=== PATIENT | female | born 1960 | race African-American/Black ===

== ENCOUNTER → 2016-08-12 | Outpatient (CLI) | payer BC ==
[~2016-08-12] MED LIST: ONDA4TAB7 SL
--- NOTE | 2016-08-13 15:29 | MAMMOGRAPHY REPORT ---
BILATERAL DIGITAL SCREENING MAMMOGRAM TOMOSYNTHESIS WITH CAD: 08/12/2016 CLINICAL HISTORY: Routine screening. Patient has no complaints. TECHNIQUE: Breast tomosynthesis in addition to standard 2D mammography was performed. Current study was also evaluated with a Computer Aided Detection (CAD) system. COMPARISON: No prior exams were available for comparison. BREAST COMPOSITION: The tissue of both breasts is heterogeneously dense, which may obscure small ma sses. FINDINGS: There are subcentimeter reniform circumscribed masses with central lucent notches and feed ing vessel in the upper outer quadrant of the left breast, most compatible with intramammary lymph n odes. No suspicious mass, architectural distortion or cluster of suspicious microcalcifications is seen. IMPRESSION: ACR BI-RADS CATEGORY 1: NEGATIVE There is no mammographic evidence of malignancy. A 1 year screening mammogram is recommended. The p atient will receive written notification of the results. Approximately 10% of breast cancers are not detected with mammography. A negative mammographic repor t should not delay biopsy if a clinically suggestive mass is present. Katharina Dobbs M.D. ay/:08/13/2016 13:28:41 Bill Of Lading Clerk: Catherine Trejo, [facility] letter sent: Normal 1/2 BI-RADS Code: ACR BI-RADS Category 1: Negative
== END | disposition home or self-care (01) ==
LOC: C.MAMM 14:21
PROVIDERS: ATTEND Family Medicine
DX: Z12.31 Encounter for screening mammogram for malignant neoplasm of breast (principal)

== ENCOUNTER 2017-06-12 17:09 | Emergency (ER) | payer BC, OTHER ==
[~2017-06-12] VITALS: Ht 167.6 cm; Wt 76.0 kg
[2017-06-12 17:17] VITALS: Ht 167.6 cm; Wt 76.0 kg
[2017-06-12] MEDS ORDERED: SODIUM CHLORIDE 0.9% 1000ML 1,000 ML IV STA (17:22)
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
[2017-06-12] MEDS ORDERED: AZEL0.1S2 NAE (17:43)
[2017-06-12] MEDS ORDERED: CYM60 PO (17:43)
[2017-06-12] MEDS ORDERED: QUET1TAB32 PO (17:43)
[2017-06-12] MEDS ORDERED: NALT50TA16 PO (17:43)
[2017-06-12] MEDS ORDERED: WLLXL300 PO (17:43)
[2017-06-12 17:44] VITALS: TEMP 36.8
[2017-06-12 17:49] LABS: BASO % 0.6 %; BASO ABS # 0.04 K/uL (0-0.2); EOS % 4.2 %; EOS ABS # 0.27 K/uL (0-0.5); HEMATOCRIT 37.4 % (37-47); HEMOGLOBIN 12.4 g/dL (12.0-16.0); IG# 0.01 K/uL (0.00-0.02); LYMPH % 48.8 %; LYMPH ABS # 3.16 K/uL (1.2-3.4); MEAN CELL VOLUME 90.3 fL (80-100); MEAN CORPUSCULAR HGB CONC 33.2 g/dl (32-36); MEAN PLATELET VOLUME 10.8 fL (7.4-10.4); MONO ABS # 0.39 K/uL (0.11-0.59); NEUT % 40.2 %; PLATELET COUNT 246 K/uL (130-400); RED CELL DISTRIBUTION WIDTH CV 14.1 % (11.5-14.5); RED CELL DISTRIBUTION WIDTH SD 46.6 fL (36.4-46.3); WHITE BLOOD COUNT 6.47 K/uL (4.8-10.8)
--- NOTE | 2017-06-12 17:53 | DIAGNOSTIC IMAGING REPORT ---
SINGLE VIEW CHEST CLINICAL HISTORY: Weakness. Change in mental status. FINDINGS: An AP, portable, upright chest radiograph is obtained. No prior studies are available for comparison at the time of dictation. The examination is degraded by portable technique and patient rotation. The cardiomediastinal silhouette is unremarkable. The lungs and pleural spaces are clear. No pneumothorax is seen. The skeletal structures appear osteopenic. The bony thorax is grossly intact. IMPRESSION: No acute cardiopulmonary abnormality. Electronically signed by: Memo Sow M.D. 06/12/2017 5:51 PM Dictated Date/Time: 06/12/2017 5:51 PM
[2017-06-12 18:00] LABS: PTT PATIENT 24.4 SECONDS (21.0-31.0)
--- NOTE | 2017-06-12 18:16 | DIAGNOSTIC IMAGING REPORT ---
HEAD CT NONCONTRAST CT DOSE: 537.48 mGy.cm HISTORY: EVALUATE ALTERED MENTAL STATUS/WEAKNESS TECHNIQUE: Multiaxial CT images of the head were performed without the use of intravenous contrast. Automated exposure control was utilized for this study. A dose lowering technique was utilized adhering to the principles of ALARA. Comparison: None. Findings: Fluid levels within the right opacification of the sphenoid sinuses, left maxillary sinus, and ethmoid air cells. The mastoid air cells are clear. The calvarium and skull base are intact. The ventricles and sulci are within normal limits. There is no mass, hematoma, midline shift, or acute infarct. Impression: No acute intracranial abnormality. Acute paranasal sinusitis. Electronically signed by: Shahab Forst M.D. 06/12/2017 6:15 PM Dictated Date/Time: 06/12/2017 6:11 PM
[2017-06-12 18:21] VITALS: BP 127/77; PULSE 76; O2SAT 100
[2017-06-12 18:23] LABS: ALBUMIN 4.2 gm/dl (3.4-5.0); ALKALINE PHOSPHATASE 82 U/L (45-117); ALT/SGPT 23 U/L (12-78); AST/SGOT 18 U/L (15-37); BLOOD UREA NITROGEN 14 mg/dl (7-18); CALCIUM 9.1 mg/dl (8.5-10.1); CARBON DIOXIDE 30 mmol/L (21-32); CREATININE 1.33 mg/dl (0.60-1.20); GLUCOSE 94 mg/dl (70-99); LIPASE 84 U/L (73-393); POTASSIUM 3.6 mmol/L (3.5-5.1); SODIUM 136 mmol/L (136-145); TOTAL PROTEIN 8.5 gm/dl (6.4-8.2)
[2017-06-12] MEDS ORDERED: AZITTAB PO (19:00)
[2017-06-12] MEDS ORDERED: AZITHROMYCIN 250 MG TAB PO STA (19:06)
== END 2017-06-12 20:41 | disposition home or self-care (01) ==
LOC: EDBD 17:09 → C.EDA 17:12
DX: R55 Syncope and collapse (principal); J32.9 Chronic sinusitis, unspecified; F32.9 Major depressive disorder, single episode, unspecified; Z79.899 Other long term (current) drug therapy; F17.210 Nicotine dependence, cigarettes, uncomplicated; V89.2XXA Person injured in unspecified motor-vehicle accident, traffic, initial encounter

== ENCOUNTER → 2017-06-25 | Outpatient (CLI) | payer OTHER ==
[~2017-06-25] MED LIST changes: +AZEL0.1S2 NAE; +CYM60 PO; +NALT50TA16 PO; -ONDA4TAB7 SL; +QUET1TAB32 PO; +WLLXL300 PO
--- NOTE | 2017-06-25 14:59 | DIAGNOSTIC IMAGING REPORT ---
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 IV contrast was not administered for this examination. A dose lowering technique was utilized adhering to the principles of ALARA. CT DOSE: k FINDINGS: No intra or extra-axial mass lesions are visualized. There is no CT evidence of acute cortical infarction. There is no evidence of midline shift. There is no acute hemorrhage. No calvarial fractures are visualized. There are patchy white matter hypodensities likely on a small vessel basis. There is no evidence of pathologic ventricular dilatation. There is been marked improvement in the previously described paranasal sinus disease. There is a trace residual right sphenoid sinus air-fluid level. IMPRESSION: No acute intracranial findings. Electronically signed by: Boy Cotton M.D. 06/25/2017 2:58 PM Dictated Date/Time: 06/25/2017 2:55 PM
== END | disposition home or self-care (01) ==
LOC: C.CTS 14:43
PROVIDERS: ATTEND Family Medicine
DX: R41.3 Other amnesia (principal); G31.89 Other specified degenerative diseases of nervous system

== ENCOUNTER 2017-08-12 17:26 | Observation (INO) | payer OTHER ==
[~2017-08-12] VITALS: Ht 167.6 cm; Wt 70.6 kg
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
--- NOTE | 2017-08-12 18:10 | DIAGNOSTIC IMAGING REPORT ---
CHEST ONE VIEW PORTABLE HISTORY: SEIZURE COMPARISON: Chest 06/12/2017. FINDINGS: The lungs are clear. Cardiac silhouette is normal in size. No pleural effusions. No pneumothorax. IMPRESSION: No acute process. Electronically signed by: Shahab Frost M.D. 08/12/2017 6:09 PM Dictated Date/Time: 08/12/2017 6:07 PM
[2017-08-12 18:40] LABS: BASO % 0.8 %; BASO ABS # 0.04 K/uL (0-0.2); EOS % 4.2 %; EOS ABS # 0.22 K/uL (0-0.5); HEMATOCRIT 37.8 % (37-47); HEMOGLOBIN 12.5 g/dL (12.0-16.0); IG# 0.01 K/uL (0.00-0.02); LYMPH % 48.2 %; LYMPH ABS # 2.54 K/uL (1.2-3.4); MEAN CORPUSCULAR HEMOGLOBIN 29.8 pg (25-34); MEAN CORPUSCULAR HGB CONC 33.1 g/dl (32-36); MEAN PLATELET VOLUME 10.5 fL (7.4-10.4); MONO % 5.9 %; MONO ABS # 0.31 K/uL (0.11-0.59); NEUT % 40.7 %; NEUT ABS # 2.15 K/uL (1.4-6.5); PLATELET COUNT 237 K/uL (130-400); RED CELL DISTRIBUTION WIDTH CV 14.1 % (11.5-14.5); RED CELL DISTRIBUTION WIDTH SD 46.2 fL (36.4-46.3); WHITE BLOOD COUNT 5.27 K/uL (4.8-10.8)
[2017-08-12 18:50] LABS: PTT PATIENT 23.1 SECONDS (21.0-31.0)
[2017-08-12 18:58] LABS: CREATININE 1.42 mg/dl (0.60-1.20); POTASSIUM 3.9 mmol/L (3.5-5.1)
[2017-08-12 19:09] LABS: PHOSPHORUS 2.4 mg/dl (2.5-4.9)
--- NOTE | 2017-08-12 19:53 | DIAGNOSTIC IMAGING REPORT ---
HEAD CT NONCONTRAST CT DOSE: 623.48 mGy.cm HISTORY: seizure TECHNIQUE: Multiaxial CT images of the head were performed without the use of intravenous contrast. Automated exposure control was utilized for this study. A dose lowering technique was utilized adhering to the principles of ALARA. Comparison: Head CT 06/12/2017. Findings: The paranasal sinuses and mastoid air cells are clear. The calvarium and skull base are intact. The ventricles and sulci are within normal limits. There is no mass, hematoma, midline shift, or acute infarct. Streak artifact from the patient's earrings. Impression: No acute intracranial abnormality. If this is the patient's first reported seizure then follow-up nonemergent brain MRI is recommended for further evaluation. Electronically signed by: Shahab Frost M.D. 08/12/2017 7:51 PM Dictated Date/Time: 08/12/2017 7:48 PM
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
[2017-08-12] MEDS ORDERED: ACETAMINOPHEN 325 MG TAB PO PRN (21:45)
[2017-08-12] MEDS ORDERED: NITROGLYCERIN 0.4 MG SL PER TAB CHARGE SL PRN (21:45)
[2017-08-12] MEDS ORDERED: POLYETHYLENE (MIRALAX) 17 GM PACK PO PRN (21:45)
[2017-08-12] MEDS ORDERED: ONDANSETRON INJ 2 MG/ML 2 ML VIAL IV PRN (21:45)
[2017-08-12] MEDS ORDERED: MAGNESIUM HYDROXIDE SUSP 30 ML UDC PO PRN (21:45)
[2017-08-12] MEDS ORDERED: ALUMINUM/MAGNESIUM/SIMETH (MAALOX MAX) 30 ML UDC PO PRN (21:45)
[2017-08-12] MEDS ORDERED: GADAVIST IV PRN (22:15)
--- NOTE | 2017-08-12 22:36 | DIAGNOSTIC IMAGING REPORT ---
Brain MRI WITH AND WITHOUT CONTRAST HISTORY: Possible seizure. TECHNIQUE: Multiplanar multisequence MRI of the brain was performed both before and after the intravenous administration of contrast. COMPARISON STUDY: Head CT 08/12/2017. FINDINGS: There are no areas of restricted diffusion to suggest acute infarction. There appear to be small retention cysts within the floors of the maxillary sinuses. Normal signal intensity within the visualized brain parenchyma. The temporal lobes are symmetric. Midline structures demonstrate a partially empty sella. The mastoid air cells are clear. The ventricles and sulci are within normal limits for age. There is no mass, hematoma, midline shift. The major vascular flow-voids at the skull base are well maintained. Postcontrast sequences show no areas of abnormal enhancement. IMPRESSION: 1. No acute intracranial abnormality. 2. Incidental note is made of a partially empty sella. 3. Small retention cysts within the maxillary sinuses. Electronically signed by: Shahab Frost M.D. 08/12/2017 10:35 PM Dictated Date/Time: 08/12/2017 10:26 PM
[2017-08-13] VITALS: BP 136/81; PULSE 81; TEMP 36.8; O2SAT 99; Ht 167.6 cm; Wt 70.6 kg
[2017-08-13] MEDS ORDERED: IV FLUIDS COMPLETED PRN (03:00)
[2017-08-13 04:00] VITALS: BP 97/60; PULSE 73; TEMP 36.6; O2SAT 96
[2017-08-13 07:11] VITALS: BP 118/74; PULSE 70; TEMP 36.8; O2SAT 99
[2017-08-13 07:31] LABS: HEMATOCRIT 35.6 % (37-47); HEMOGLOBIN 11.9 g/dL (12.0-16.0); MEAN CELL VOLUME 89.7 fL (80-100); MEAN CORPUSCULAR HGB CONC 33.4 g/dl (32-36); MEAN PLATELET VOLUME 10.2 fL (7.4-10.4); PLATELET COUNT 231 K/uL (130-400); RED CELL DISTRIBUTION WIDTH CV 14.1 % (11.5-14.5); RED CELL DISTRIBUTION WIDTH SD 46.5 fL (36.4-46.3); WHITE BLOOD COUNT 6.55 K/uL (4.8-10.8)
[2017-08-13] MEDS: DULOXETINE HCL 60 MG CAP PO SCH (07:36)
[2017-08-13 08:05] LABS: CALCIUM 8.8 mg/dl (8.5-10.1); CREATININE 1.27 mg/dl (0.60-1.20); POTASSIUM 3.8 mmol/L (3.5-5.1)
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
[2017-08-13 11:19] VITALS: BP 132/84; PULSE 70; TEMP 36.7; O2SAT 95
[2017-08-13 14:22] VITALS: BP 111/69; PULSE 77; TEMP 36.7; O2SAT 97
--- NOTE | 2017-08-13 18:10 | ECHOCARDIOGRAM REPORT ---
*NOTICE TO RECEIVING REPUBLICAN AGENCY This information is strictly Confidential and protected under [place] law. [place] law prohibits you from making any further disclosure of this information unless further disclosure is expressly permitted by the written consent of the person to whom it pertains or is authorized by law. A general authorization for the release of medical or other information is not sufficient for this purpose. Hospital accepts no responsibility if the information is made available to any other person, INCLUDING THE PATIENT. Interpretation Summary * Name: LIONEL HAWTHORNE Study Date: 08/13/2017 03:27 PM BP: 111/69 mmHg * Patient Location: .[id number]\1 HR: 77 * : 1960 (M/d/yyyy) Gender: Female Height: 66 in * Age: 57 yrs Ethnicity: AA Weight: 157 lb * Ordering Physician: Ahsan Martin * Referring Physician: Self, Referred * Performed By: Fatmata Patel RDCS * * Reason For Study: Syncope * BSA: 1.8 m2 * -- Conclusions -- * 1. Normal left ventricular size and systolic function. EF 55-60%. No regional wall motion abnormalities. No left ventricular hypertrophy. Type 1 diastolic dysfunction. * 2. No significant valvular abnormalities. * 3. No prior study available for comparison. Procedure Details * A complete two-dimensional transthoracic echocardiogram was performed (2D, M-mode, Doppler and color flow Doppler). Left Ventricle * Normal left ventricular size and systolic function. EF 55-60%. No regional wall motion abnormalities. No left ventricular hypertrophy. Type 1 diastolic dysfunction. Right Ventricle * The right ventricle is normal in size and function. * The right ventricular systolic function is normal as assessed by tricuspid annular plane systolic excursion (TAPSE) (normal >1.5 cm). Atria * The left atrial size is normal. * Right atrial size is normal. * There is no evidence of atrial septal defect, but resolution does not allow assessment for a patent foramen ovale. Mitral Valve * The mitral valve is grossly normal. * There is no mitral valve stenosis. * There is trace mitral regurgitation. Tricuspid Valve * The tricuspid valve is not well visualized, but is grossly normal. * There is no tricuspid stenosis. * Significant tricuspid regurgitation is absent. Aortic Valve * The aortic valve is trileaflet. * No hemodynamically significant valvular aortic stenosis. * No aortic regurgitation is present. Pulmonic Valve * The pulmonary valve is inadequately visualized, but the Doppler data is adequate for interpretation. * There is no pulmonic valvular stenosis. * There is no significant pulmonary regurgitation. Great Vessels * The aortic root is normal size. * Ascending aorta of normal dimension * Normal pulmonary venous flow pattern. Pericardium/Pleural * There is no pericardial effusion. Great Vessels * Normal inferior vena cava size and collapsability with sniff indicates a normal right atrial pressure of 3 mmHg MMode 2D Measurements and Calculations IVSd 0.73 cm LVIDd 4.1 cm LVIDs 2.8 cm LVPWd 0.71 cm IVS/LVPW 1.0 FS 30.8 % EDV(Teich) 74.1 ml ESV(Teich) 30.5 ml EF(Teich) 58.9 % EDV(cubed) 68.8 ml ESV(cubed) 22.8 ml EF(cubed) 66.8 % LV mass(C)d 85.0 grams LV mass(C)dI 47.1 grams/m\S\2 SV(Teich) 43.6 ml SI(Teich) 24.2 ml/m\S\2 SV(cubed) 46.0 ml SI(cubed) 25.5 ml/m\S\2 Ao root diam 2.6 cm Ao root area 5.5 cm\S\2 ACS 2.0 cm LA dimension 3.2 cm asc Aorta Diam 1.9 cm LA/Ao 1.2 LVOT diam 2.0 cm LVOT area 3.3 cm\S\2 LVAd ap4 22.0 cm\S\2 LVLd ap4 7.2 cm EDV(MOD-sp4) 54.2 ml EDV(sp4-el) 56.9 ml LVAs ap4 12.5 cm\S\2 LVLs ap4 6.1 cm ESV(MOD-sp4) 22.0 ml ESV(sp4-el) 22.0 ml EF(MOD-sp4) 59.3 % EF(sp4-el) 61.4 % LVAd ap2 17.4 cm\S\2 LVLd ap2 6.5 cm EDV(MOD-sp2) 37.8 ml EDV(sp2-el) 39.4 ml LVAs ap2 9.5 cm\S\2 LVLs ap2 5.0 cm ESV(MOD-sp2) 15.2 ml ESV(sp2-el) 15.4 ml EF(MOD-sp2) 59.9 % EF(sp2-el) 60.8 % LVLd %diff -11.05 % EDV(MOD-bp) 48.0 ml LVLs %diff -22.21 % ESV(MOD-bp) 20.0 ml EF(MOD-bp) 58.3 % SV(MOD-sp4) 32.1 ml SI(MOD-sp4) 17.8 ml/m\S\2 SV(MOD-sp2) 22.6 ml SI(MOD-sp2) 12.5 ml/m\S\2 SV(MOD-bp) 28.0 ml SI(MOD-bp) 15.5 ml/m\S\2 SV(sp4-el) 35.0 ml SI(sp4-el) 19.4 ml/m\S\2 SV(sp2-el) 24.0 ml SI(sp2-el) 13.3 ml/m\S\2 Doppler Measurements and Calculations MV E max frank 78.1 cm/sec MV A max frank 79.5 cm/sec MV E/A 0.98 MV dec time 0.21 sec Ao V2 max 126.8 cm/sec Ao max PG 6.4 mmHg Ao max PG (full) 3.7 mmHg DEON(V,A) 2.1 cm\S\2 DEON(V,D) 2.1 cm\S\2 LV V1 max PG 2.7 mmHg LV V1 max 82.5 cm/sec PA V2 max 88.2 cm/sec PA max PG 3.1 mmHg PA acc slope 624.8 cm/sec\S\2 PA acc time 0.10 sec RAP systole 3.0 mmHg PA pr(Accel) 34.6 mmHg
[2017-08-13 18:38] VITALS: BP 111/71; PULSE 80; TEMP 36; O2SAT 97
[2017-08-14 00:31] VITALS: BP 126/82; PULSE 82; TEMP 36.7; O2SAT 97
[2017-08-14 03:55] VITALS: BP 112/69; PULSE 70; TEMP 36.7; O2SAT 98
[2017-08-14 07:03] VITALS: BP 122/73; PULSE 75; TEMP 36.5; O2SAT 99
[2017-08-14] MEDS: DULOXETINE HCL 60 MG CAP PO SCH (08:10)
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
[2017-08-14] MEDS ORDERED: CRG40 PO (11:23)
[2017-08-14 11:24] VITALS: BP 128/76; PULSE 72; TEMP 36.8; O2SAT 97
--- NOTE | 2017-08-14 11:29 | Discharge Instructions ---
Discharge Instructions Date of Service Aug 14, 2017. Admission Reason for Admission: Syncopal Episodes Discharge Discharge Diagnosis / Problem: syncope Discharge Goals Goal(s): Decrease discomfort Activity Recommendations Activity Limitations: resume your previous activity . Instructions / Follow-Up Instructions / Follow-Up You were admitted after you had passed out suddenly. You were monitored for any rhythm changes and your EKG revealed prolonged QT interval which might trigger an abnormal rhythm. However you will need to be placed on a event monitor for about a month to capture any arrhythmias. Your echocardiogram was normal Recommendations: You will receive an event monitor in the mail from the cardiology office and please use it as directed. - You are also recommended to use nadolol 40 mg daily - Please follow up with cardiology /Dr. Palomares's office as scheduled. - STOP using Seroquel and Wellbutrin as they might affect your heart rhythm. - Please discuss with your family doctor to change your medications for anxiety/ depression - You are OK to use Cymbalta Follow up with your PCP in about a week Current Hospital Diet Patient's current hospital diet: Regular Diet Discharge Diet Recommended Diet: Regular Diet Pending Studies Studies pending at discharge: no Medical Emergencies . Who to Call and When: Medical Emergencies: If at any time you feel your situation is an emergency, please call 911 immediately. . Non-Emergent Contact Non-Emergency issues call your: Primary Care Provider . . "Provider Documentation" section prepared by Amelia Cardenas. . Resident Tracking Resident Involvement: Resident Care Provided Care Provided: Adult Hospital Medicine
[2017-08-14 12:04] VITALS: BP 128/76; PULSE 72; TEMP 36.8; O2SAT 97
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
== END 2017-08-14 12:20 | disposition home or self-care (01) ==
LOC: EDBD 17:26 → C.EDC 17:27 → C.MS2W 21:35 → EDBEDREQ 21:43 → ENRESERV 22:02
PROVIDERS: ADMIT Hospitalist; ATTEND Family Medicine
DX: R55 Syncope and collapse (principal); I45.81 Long QT syndrome; N18.9 Chronic kidney disease, unspecified; F17.210 Nicotine dependence, cigarettes, uncomplicated; F32.9 Major depressive disorder, single episode, unspecified; F41.9 Anxiety disorder, unspecified; F11.21 Opioid dependence, in remission

== ENCOUNTER → 2017-12-15 | Outpatient (CLI) | payer OTHER ==
[~2017-12-15] MED LIST changes: +CRG40 PO; -QUET1TAB32 PO; -WLLXL300 PO
--- NOTE | 2017-12-15 15:43 | DIAGNOSTIC IMAGING REPORT ---
PA CHEST RADIOGRAPH AND UPRIGHT AND SUPINE AP RADIOGRAPHS OF THE ABDOMEN CLINICAL HISTORY: Constipation. COMPARISON STUDY: Chest radiograph August 12, 2017. FINDINGS: Lung volumes are normal. Lungs are clear. No pneumothorax or pleural effusion is noted. Cardiac size is normal. Mediastinal contours are normal. There is no evidence for pulmonary edema. There is no free air. Pelvic calcifications statistically reflect phleboliths. The bowel gas pattern is normal. A moderate amount of stool is noted within the colon and rectum. IMPRESSION: 1. Moderate amount of stool within the colon and rectum. 2. No evidence for a bowel obstruction. No free air. 3. No acute cardiopulmonary findings. Electronically signed by: Eder Felix M.D. 12/15/2017 3:42 PM Dictated Date/Time: 12/15/2017 3:40 PM
== END | disposition home or self-care (01) ==
LOC: C.RAD1850 14:39
PROVIDERS: ATTEND Nurse Practitioner Family
DX: K59.00 Constipation, unspecified (principal); R10.9 Unspecified abdominal pain